=== PATIENT | female | born 1985 | race Caucasian/White ===

== ENCOUNTER 2017-05-08 10:56 | Emergency (ER) | payer MEDICAID ==
[~2017-05-08] VITALS: Ht 170.2 cm; Wt 61.2 kg
--- NOTE | 2017-05-08 11:55 | NUR ---
PATIENT WAS SEEN BY MD FOR RASH. DC, RX AND FOLLOW UP INSTRUCTIONS GIVEN AND EXPLAINED TO PATIENT WHO STATES SHE UNDERSTANDS ALL INSTRUCTIONS.
== END 2017-05-08 12:23 | disposition home or self-care (01) ==
LOC: ER 10:56
DX: L01.00 Impetigo, unspecified (principal); B95.61 Methicillin susceptible Staphylococcus aureus infection as the cause of diseases classified elsewhere
CPT/HCPCS: 99283; A4663